=== PATIENT | female | born 1935 | race Caucasian/White ===

== ENCOUNTER 2024-04-30 01:43 | Emergency (ER) | payer MEDICARE, SELFPAY ==
[2024-04-30 01:45] VITALS: BP 157/67
[2024-04-30 01:48] VITALS: BP 157/67
[2024-04-30 02:00] VITALS: BP 132/63
[2024-04-30 02:06] VITALS: BMI 25.7
[2024-04-30] MEDS: ADACEL 0.5 ML IM (02:36)
[2024-04-30 04:00] VITALS: BP 137/108
[2024-04-30 04:15] VITALS: BP 148/80
--- NOTE | 2024-04-30 04:30 | ED.GENMED ---
History of Present Illness
General
Chief Complaint: Fall
Source: patient and ambulance crew
Exam Limitations: none
Time Seen by Provider: 04/30/24 02:12
Nursing documentation reviewed up to this point in time: agreed with
History of Present Illness
History of Present Illness:
This is an 88-year-old woman who resides in an assisted living apartment with her . Recently relocated to [facility] 2 weeks ago. She has history of ambulatory dysfunction, uses a rollator and tonight while using her rollator
to ambulate to the bathroom she lost her balance and fell onto her knees and then struck her right brow. She also notes a skin tear to her left forearm which she states occurred when she struck her left forearm on her walker.
She denies loss of consciousness, was able to get up and stand. Initially noted mild pain to her right knee which has since resolved.
Takes no anticoagulants save for low-dose aspirin.
She denies headache, denies neck nor back pain. No dizziness nor lightheadedness. No history of frequent falls.
Past History
Past History
ED Past Medical History: GERD, HTN, Hypercholesterolemia, Hypothyroidism and Other (Polycythemia)
ED Past Surgical History: Cholecystectomy and Tonsilectomy
Social History
Tobacco: Non-smoker
Alcohol: None
Drug: None
Personal:
Living: assisted living (Resides with her in an assisted living apartment)
Employment: Retired
Family History
Family History: Other (Noncontributory)
Phy Exam
Physical Exam
Physical Exam:
GENERAL: 88-year-old woman appears her stated age, bright and alert, pleasant, appears in no acute distress. Easily communicative. Oriented x 3.
EYE: pupils equal and reactive. Extraocular muscles intact. Anicteric. There is a moderate-sized hematoma right lateral brow. Mild local tenderness to palpation. No lid edema nor ecchymosis.
NECK: Supple, nontender, full range of motion without difficulty nor pain, no significant adenopathy.
ENT: posterior pharynx is clear, oral mucosa is moist. TM clear b/l, nares patent.
CARDIAC: Regular rate and rhythm. no murmur. No chest wall tenderness.
LUNGS: Clear breath sounds bilaterally, no acute respiratory distress, no wheezes/rales/rhonchi
ABDOMEN: Soft, nondistended, without focal tenderness, no r/g, no cvat. normoactive BS.
BACK: No midline bony tenderness. Straight leg raising negative bilaterally.
NEUROLOGICAL: Alert and oriented x3, no focal neuro deficits.
SKIN: Warm and dry, normal color, no rash. Left posterior distal forearm has a 5 cm x 6 cm very superficial skin tear. No active bleeding. No soft tissue swelling nor ecchymosis. No palpable bony tenderness.
MUSCULOSKELETAL: No C/C/E. peripheral pulses are full and equal b/l. There is mild tenderness about the right shoulder. Full shoulder range of motion with increased pain with abduction greater than 100 degrees. No crepitus. There is very minimal
ecchymosis bilateral anterior knees without palpable tenderness, no joint effusion, full range of motion bilateral lower extremities without difficulty nor pain.
PSYCH: Normal and appropriate interaction.
Course
Orders/Labs/Results
Orders:
Orders
04/30/24 02:28
Shoulder, Right, Trauma [CR Shoulder, Trauma - Right] Urgent
Comment:
Reason For Exam: fall, right shoulder pain
04/30/24 02:29
CT Head W/o Iv Contrast Urgent
Comment:
Reason For Exam: mechanical fall, right brow/forehead injury
04/30/24 02:31
Tetanus/Diphth/Acelpertussis [Adacel] 0.5 ml IM .ONCE ONE
Vital Signs
Initial and Last Documented VS:
Initial Vital Signs
BP
157/67
04/30/24 01:45
Last Documented Vital Signs
Temp Pulse Resp BP Pulse Ox
98.2 F 70 14 132/63 92
04/30/24 01:48 04/30/24 01:48 04/30/24 01:48 04/30/24 02:00 04/30/24 02:30
MDM/Problems Addressed
Differential Diagnosis Includes:
Patient presents after mechanical fall. Has full recollection of event.
Due to advanced age, right brow hematoma, concern for occult intracranial injury thus will check CT of the head.
She is noted have mild right shoulder pain with palpation and with range of motion. Concern for occult fracture thus will check x-ray.
Skin tear of the left forearm is very superficial. Not amenable to suture repair nor wound glue. The overlying, devitalized skin has been debrided by myself. Normal saline solution irrigation.
Wound has been dressed with bacitracin, Adaptic, 4 x 4 and Ren.
*Radiology
Radiology exam reviewed: preliminary read by ED provider (Right shoulder x-ray is unremarkable. No evidence of fracture.) and radiology read reviewed (CT of the head shows no acute traumatic findings.)
*Pulse Oximetry
Patient hypoxic: no
*Critical Care Note
Total Time (30-74mins, 75-104mins- exclusive of procedures): Not Applicable
ED Attending Note
-
Portions of this chart may have been created with voice recognition software.� Occasional wrong word or��sound alike� substitutions may have occurred due to the inherent limitations of voice recognition software.
Discharge Plan
Departure
Patient Disposition: Assisted Living
Date of Disposition: 04/30/24
Time of Disposition: 04:38
Patient with high blood pressure during this ER visit?: No
Condition: Good
Discharge Problem:
Contusion of right orbit, Contusion of right shoulder, Skin tear of left forearm without complication
Instructions: Contusion (DC), Preventing falls in adults, Skin Abrasions (DC)
Prescriptions:
No Action
cetirizine 10 mg Tablet
10 mg PO DAILY
amitriptyline 75 mg Tablet
75 mg PO HS
donepezil 10 mg Tablet
10 mg PO DAILY
omeprazole 40 mg Capsule,Delayed Release(Dr/Ec)
40 mg PO DAILY
levothyroxine 75 mcg Tablet
75 mcg PO DAILY
levocarnitine 500 mg Tablet
500 mg DAILY
montelukast 10 mg Tablet
10 mg PO DAILY
aspirin 81 mg Tablet
81 mg PO DAILY
ferrous sulfate 325 mg (65 mg iron) Tablet,Delayed Release (Dr/Ec)
325 mg PO DAILY
escitalopram oxalate [Lexapro] 10 mg Tablet
10 mg PO DAILY
coenzyme Q10 100 mg Capsule
100 mg PO DAILY
rosuvastatin 20 mg Tablet
20 mg PO DAILY
memantine 28 mg Capsule,Sprinkle,Er 24hr
28 mg PO DAILY
Klor-Con
10 meq PO DAILY
[id number]-lycopen-lutein
Referrals:
UNKNOWN - PT NOT,INTERVIEWE [Family Provider] - Call in 1-3 days for appt
Interventions
Interventions:
*Risk Screen - Suicide Last Done: 04/30/24 01:48
*General Assessment Last Done: 04/30/24 01:48
*Neglect/Abuse Screening Last Done: 04/30/24 01:48
ED- Fall Risk Assessment Last Done: 04/30/24 02:01
*ED COVID-19 Vaccine History Last Done: 04/30/24 01:48
ED-Musculoskeletal Assessment Last Done: 04/30/24 02:01
ED- Neurological Assessment Last Done: 04/30/24 02:01
ED-Skin Assessment Last Done: 04/30/24 02:01
Discharge Date and Time
Print Language: TONGAN
[2024-04-30 05:00] VITALS: BP 148/72
== END 2024-04-30 05:57 ==
LOC: EMR 01:43
PROVIDERS: EMERGENCY PHYSICIAN Emergency Medicine
DX: S40.011A Contusion of right shoulder, initial encounter (principal); S05.11XA Contusion of eyeball and orbital tissues, right eye, initial encounter; S51.812A Laceration without foreign body of left forearm, initial encounter; M25.561 Pain in right knee; W19.XXXA Unspecified fall, initial encounter; Z23 Encounter for immunization; I10 Essential (primary) hypertension; E78.00 Pure hypercholesterolemia, unspecified; K21.9 Gastro-esophageal reflux disease without esophagitis; E03.9 Hypothyroidism, unspecified; D75.1 Secondary polycythemia; Z90.49 Acquired absence of other specified parts of digestive tract; R26.89 Other abnormalities of gait and mobility; Z79.82 Long term (current) use of aspirin; Z88.6 Allergy status to analgesic agent; Z88.1 Allergy status to other antibiotic agents; Z88.8 Allergy status to other drugs, medicaments and biological substances; Z91.048 Other nonmedicinal substance allergy status
CPT/HCPCS: 99284; 90471; 70450; 73030; 90715